=== PATIENT | male | born 1950 | race Two or more races ===

== ENCOUNTER 2025-03-26 20:43 | Emergency (ER) | payer OTHER ==
[~2025-03-26] VITALS: Ht 172.7 cm; Wt 80.7 kg
[2025-03-26] MEDS ORDERED: NORVASC5 MG (21:02)
[2025-03-26] MEDS ORDERED: COZAAR100 MG (21:02)
[2025-03-26] MEDS ORDERED: ADULT LOW DOSE81 M1 (21:02)
[2025-03-26] MEDS ORDERED: LIPITOR40 M1 (21:02)
[2025-03-26] MEDS ORDERED: TOPROL XL25 M1 (21:03)
== END 2025-03-27 00:41 | disposition home or self-care (01) ==
LOC: ER 20:43
DX: F41.8 Other specified anxiety disorders (principal); I10 Essential (primary) hypertension; Z86.73 Personal history of transient ischemic attack (TIA), and cerebral infarction without residual deficits; Z88.0 Allergy status to penicillin